=== PATIENT | female | born 1950 | race Caucasian/White ===

== ENCOUNTER 2019-12-21 07:51 | Day surgery (SDC) | payer MEDICARE, BC ==
[~2019-12-21 07:51] MED LIST: Lactated Ringers 1,000 ML IV SCH; Sodium Chloride 0.9% 10 ML Syringe FLUSH PRN
[2019-12-21] MEDS ORDERED: Propofol 200 MG/20 ML SDV ONE ×2 (08:43→09:07)
[2019-12-21] MEDS ORDERED: Midazolam 1 MG/ML 2 ML SDV ONE ×2 (08:43→09:07)
--- NOTE | 2019-12-21 09:06 | PCM.PN ---
- General Info Date of Service: 12/21/19 - Review of Systems Systems Review Comment:: 69-year-old female here for colonoscopy. She has a history of colon polyps and diverticulosis. She is medically stable to proceed today. Her recent history and physical is reviewed and no significant changes are noted. I have discussed the proposed colonoscopy with the patient. Risks such as but not limited to bleeding and GI injury reviewed. She agrees to proceed. - Patient Data Vitals - Most Recent: Last Vital Signs Temp 97.2 F 12/21/19 08:56 Pulse 48 L 12/21/19 08:56 Resp 18 12/21/19 08:56 BP 150/74 H 12/21/19 08:56 Pulse Ox 98 12/21/19 08:56 Weight - Most Recent: 114.759 kg Med Orders - Current: Current Medications Lactated Ringer's (Ringers, Lactated) 1,000 mls @ 125 mls/hr IV ASDIRECTED SOY Last Admin: 12/21/19 08:55 Dose: 125 mls/hr Documented by: Sodium Chloride (Saline Flush) 10 ml FLUSH ASDIRECTED PRN PRN Reason: Keep Vein Open Discontinued Medications Midazolam HCl (Versed 1 Mg/Ml) Confirm Administered Dose 2 mg .ROUTE .STK-MED ONE Stop: 12/21/19 08:44 Propofol (Diprivan 20 Ml) Confirm Administered Dose 400 mg .ROUTE .STK-MED ONE Stop: 12/21/19 08:44 Sepsis Event Note - Focused Exam Vital Signs: Vital Signs Temp Pulse Resp BP Pulse Ox 12/21/19 08:56 97.2 F 48 L 18 150/74 H 98 - Problem List Review Problem List Initiated/Reviewed/Updated: Yes - Assessment Assessment:: History of colon polyps - Plan Plan:: Colonoscopy
--- NOTE | 2019-12-21 09:43 | PCM.OPNOTE ---
- General Post-Op/Procedure Note Date of Surgery/Procedure: 12/21/19 Operative Procedure(s): Colonoscopy Findings: Moderate sigmoid diverticulosis Pre Op Diagnosis: History of colon polyps Post-Op Diagnosis: Sigmoid diverticulosis Anesthesia Technique: MAC Primary Surgeon: Mike Pablo Pathology: none EBL in mLs: 0 Complications: None Condition: Good
[2019-12-21 10:07] VITALS: BP 137/78; PULSE 55
--- NOTE | 2019-12-21 10:59 | OR ---
Date of Procedure: 12/21/2019 PREOPERATIVE DIAGNOSIS: History of colon polyps. POSTOPERATIVE DIAGNOSIS: Sigmoid diverticulosis. OPERATIONS PERFORMED: Colonoscopy. INDICATIONS FOR SURGERY: This 69-year-old female has a known history of colon polyps. She comes today for surveillance colonoscopy. FINDINGS: No polyps were seen on today's exam. The patient does have a moderate degree of diverticulosis in the sigmoid colon. This does not appear to be acutely inflamed or otherwise, complicated. Colon and rectum otherwise appear normal. DESCRIPTION OF PROCEDURE: The patient was taken to the operating room. She was given intravenous sedation, and with her in the left lateral decubitus position, digital rectal exam was performed showing no rectal masses. The Olympus colonoscope was inserted into the rectum and retroflexed examination of the rectal canal was performed. The scope was then carefully advanced under direct visualization through the entire length of the colon until the cecum was reached. Cecal acquisition was confirmed by noting the normal internal cecal anatomy including the appendiceal orifice and the ileocecal valve. The light was also noted to transilluminate the abdominal wall in the right lower quadrant. After examining the cecum, the scope was slowly withdrawn sequentially re-examining the colonic segments until the entire colon and rectum had been fully examined. The scope was removed and the patient was taken from the operating room in satisfactory condition. ESTIMATED BLOOD LOSS: Zero. COMPLICATIONS: None. PROGNOSIS: Good. STEPHEN Pablo MD /[id number]
== END 2019-12-21 11:02 | disposition home or self-care (01) ==
LOC: LL.SDS 07:51
PROVIDERS: ATTEND Surgery
DX: Z12.11 Encounter for screening for malignant neoplasm of colon (principal); K57.30 Diverticulosis of large intestine without perforation or abscess without bleeding; I89.0 Lymphedema, not elsewhere classified; E66.01 Morbid (severe) obesity due to excess calories; M19.072 Primary osteoarthritis, left ankle and foot; M19.071 Primary osteoarthritis, right ankle and foot; I10 Essential (primary) hypertension; E78.2 Mixed hyperlipidemia; Z88.2 Allergy status to sulfonamides; Z88.8 Allergy status to other drugs, medicaments and biological substances; Z86.010 Personal history of colon polyps; Z68.41 Body mass index [BMI] 40.0-44.9, adult; Z72.89 Other problems related to lifestyle; Z98.890 Other specified postprocedural states
CPT/HCPCS: 00811; J2250; J2704; J7120